=== PATIENT | female | born 1965 | race Caucasian/White ===

== ENCOUNTER 2017-04-09 06:18 | Day surgery (SDC) | payer OTHER ==
[~2017-04-09] VITALS: Ht 160 cm; Wt 83.0 kg
[2017-04-09] MEDS ORDERED: PROPOFOL 200 MG/20 ML VIAL IV ONE (07:15)
[2017-04-09] MEDS ORDERED: MIDAZOLAM 2 MG/2 ML VIAL ONE (07:37)
[2017-04-09] MEDS ORDERED: fentaNYL 0.05 MG/ML VIAL ONE (07:38)
[2017-04-09] MEDS ORDERED: MEPERIDINE 25 MG/ML SYR ONE (07:38)
[2017-04-09] MEDS ORDERED: ACETAMINOPHEN/CODEINE 300/30MG 1 TAB PO PRN (07:50)
[2017-04-09] MEDS ORDERED: MORPHINE SULFATE 4 MG/ML SYR IM/IVP PRN (07:50)
[2017-04-09] MEDS ORDERED: IBUPROFEN 800 MG TAB PO PRN (07:50)
[2017-04-09] MEDS ORDERED: ONDANSETRON 4 MG/2 ML VIAL IVP PRN ×2 (07:50→08:10)
[2017-04-09] MEDS ORDERED: ALDOMET PO (07:51)
[2017-04-09] MEDS ORDERED: MEPERIDINE 25 MG/ML SYR IVP PRN (08:10)
[2017-04-09] MEDS ORDERED: HYDROmorphone 1 MG/ML AMP IVP PRN (08:10)
[2017-04-09] MEDS ORDERED: diphenhydrAMINE 50 MG/ML VIAL IVP PRN (08:10)
[2017-04-09] MEDS ORDERED: LACTATED RINGERS 1,000 ML IV SCH (08:10)
== END 2017-04-09 09:47 | disposition home or self-care (01) ==
LOC: MDS 06:18 → MMU 06:19 → MDS 09:47
PROVIDERS: ATTEND Obstetrics & Gynecology
DX: N95.0 Postmenopausal bleeding (principal); I10 Essential (primary) hypertension; R01.1 Cardiac murmur, unspecified; K21.9 Gastro-esophageal reflux disease without esophagitis; J45.909 Unspecified asthma, uncomplicated; E66.9 Obesity, unspecified; Z68.38 Body mass index [BMI] 38.0-38.9, adult; J44.9 Chronic obstructive pulmonary disease, unspecified; Z87.891 Personal history of nicotine dependence; Z98.890 Other specified postprocedural states
CPT/HCPCS: 58120; J2175; J2250; J2704; J3010